=== PATIENT | female | born 1950 | race Caucasian/White ===

== ENCOUNTER 2020-11-23 20:52 | Inpatient (IN) ==
[2020-11-24] MEDS ORDERED: Naloxone 0.4 MG/ML INJ IVP PRN (00:02)
[2020-11-24] MEDS ORDERED: Ondansetron 4 MG/2 ML VIAL IVP PRN (00:02)
[2020-11-24] MEDS ORDERED: 0.9 % Sodium Chloride 1,000 ML IVC SCH (00:15)
[2020-11-24] MEDS: Pantoprazole 40 MG in 0.9 % Sodium Chloride Mini Bag 100 ML IVC SCH ×4 (00:53→15:35)
[2020-11-24 02:20] LABS: Basophils % 0.3 %; Eosinophils % 0.3 %; Hematocrit 16.7 % (35.3-44.9); Mean Platelet Volume 9.3 fL (9.4-12.4)
[2020-11-24 02:22] LABS: Immature Granulocytes % 0.7 % (0-4); Mean Corpuscular HGB Conc 32.3 g/dL (31.6-35.5); Mean Corpuscular Hemoglobin 30.2 pg (28.0-33.3); Mean Corpuscular Volume 93.3 fL (83.0-100.0); Monocytes # 0.6 K/mcL (0.0-1.3); Platelet Count 215 K/mcL (140-400); Red Blood Count 1.79 M/mcL (3.82-4.97); Red Cell Distribution Width 13.6 % (11.5-14.5); Segmented Neutrophils % 74.7 %; White Blood Count 9.7 K/mcL (4.3-11.1)
[2020-11-24 02:24] LABS: Lymphocytes # 1.8 K/mcL (0.6-4.6)
[2020-11-24 02:25] LABS: Hemoglobin 5.4 g/dL (11.5-15.4); Neutrophils # 7.3 K/mcL (1.6-8.9)
[2020-11-24 02:30] LABS: INR 1.2; Prothrombin Time 13.5 Seconds (9.4-12.1)
[2020-11-24 02:32] LABS: BUN/Creatinine Ratio 38 (6-26); Blood Urea Nitrogen 35 mg/dL (8-23); Calcium 7.2 mg/dL (8.6-10.3); Carbon Dioxide 24 mEq/L (23-29); Chloride 101 mEq/L (98-107); Glucose 112 mg/dL (70-105); Osmolality,Calculated 279 (280-300); Potassium 3.8 mEq/L (3.5-5.1); Sodium 130 mEq/L (136-145); eGFR For African Americans > 60 (> 60); eGFR For Non-African Americans > 60 (> 60)
[2020-11-24 02:33] LABS: Activated Partial Thrombo Time 23.5 Seconds (26.0-36.0)
[2020-11-24 03:00] LABS: Platelet Estimate Normal (Normal)
[2020-11-24] MEDS ORDERED: 0.9 % Sodium Chloride 250 ML ONE ×2 (03:06→08:47)
[2020-11-24] MEDS ORDERED: Pantoprazole 40 MG VIAL ONE (05:48)
[2020-11-24 07:43] LABS: Basophils % 0.3 %; Eosinophils % 0.2 %; Hematocrit 18.3 % (35.3-44.9); Immature Granulocytes % 0.8 % (0-4); Lymphocytes # 1.7 K/mcL (0.6-4.6); Lymphocytes % 18.6 %; Mean Corpuscular HGB Conc 32.8 g/dL (31.6-35.5); Mean Corpuscular Volume 91.5 fL (83.0-100.0); Mean Platelet Volume 9.5 fL (9.4-12.4); Monocytes # 0.6 K/mcL (0.0-1.3); Monocytes % 6.7 %; Neutrophils # 6.7 K/mcL (1.6-8.9); Platelet Count 195 K/mcL (140-400); Red Cell Distribution Width 14.6 % (11.5-14.5); Segmented Neutrophils % 73.4 %; White Blood Count 9.1 K/mcL (4.3-11.1)
[2020-11-24] MEDS ORDERED: Ipratropium/Albuterol Neb 3 ML IH PRN (09:06)
[2020-11-24] MEDS ORDERED: Loratadine 10 MG TABLET PO PRN (09:16)
[2020-11-24] MEDS ORDERED: Lidocaine -MPF 2% 2 ML VIAL ONE (12:26)
[2020-11-24] MEDS ORDERED: Dexamethasone 4 MG/ML VIAL ONE (12:26)
[2020-11-24] MEDS ORDERED: *HR* Succinylcholine 200 MG/10 ML VIAL IVP ONE (12:26)
[2020-11-24] MEDS ORDERED: Ondansetron 4 MG/2 ML VIAL ONE (12:26)
[2020-11-24] MEDS ORDERED: *HR* Rocuronium Bromide 50 MG/5 ML VIAL ONE (13:37)
[2020-11-24] MEDS ORDERED: *HR* Midazolam HCl 2 MG/2 ML VIAL ONE (13:39)
[2020-11-24] MEDS ORDERED: *HR* Propofol 200 MG/20 ML VIAL IVP PRN (13:57)
[2020-11-24] MEDS: Octreotide 400 MCG in 0.9 % Sodium Chloride 100 ML IVC SCH ×2 (15:17→22:25)
[2020-11-24 15:32] LABS: VBG Ionized Calcium 0.91 mmol/L (1.15-1.35)
[2020-11-24 15:34] LABS: Hematocrit 24.6 % (35.3-44.9)
[2020-11-24] MEDS: Piperacillin/Tazobactam 3.375 GM in 0.9 % Sodium Chloride Mini Bag 100 ML IVPB SCH (15:34)
[2020-11-24 15:35] LABS: Hemoglobin 7.9 g/dL (11.5-15.4)
[2020-11-24] MEDS: FentaNYL (PF) 1,000 MCG/100 ML IV.SOLN IVC SCH (15:35)
[2020-11-24 15:37] LABS: INR 1.1; Prothrombin Time 13.1 Seconds (9.4-12.1)
[2020-11-24 15:39] LABS: Activated Partial Thrombo Time 24.1 Seconds (26.0-36.0)
[2020-11-24 15:58] LABS: Alanine Aminotransferase 8 Units/L (7-52); Albumin 3.4 g/dL (3.5-5.7); Albumin/Globulin Ratio 1.8 (1.1-2.2); Alkaline Phosphatase 37 Units/L (34-104); Aspartate Amino Transferase 11 Units/L (13-39); BUN/Creatinine Ratio 45 (6-26); Bilirubin,Direct 0.1 mg/dL (0.0-0.2); Bilirubin,Indirect 0.3 mg/dL (0.0-1.0); Bilirubin,Total 0.4 mg/dL (0.3-1.0); Blood Urea Nitrogen 39 mg/dL (8-23); Calcium 6.9 mg/dL (8.6-10.3); Carbon Dioxide 23 mEq/L (23-29); Chloride 105 mEq/L (98-107); Globulin 1.9 g/dL (2.4-3.5); Glucose 154 mg/dL (70-105); Osmolality,Calculated 288 (280-300); Phosphorous 2.2 mg/dL (2.7-4.5); Potassium 3.8 mEq/L (3.5-5.1); Sodium 133 mEq/L (136-145); Total Protein 5.3 g/dL (6.4-8.9); eGFR For African Americans > 60 (> 60); eGFR For Non-African Americans > 60 (> 60)
[2020-11-24] MEDS ORDERED: Potassium Phosphate 44 MEQ in 0.9 % Sodium Chloride 250 ML IVPB ONE (16:00)
[2020-11-24] MEDS: Calcium Gluconate 1gm/50mL 1 GM/50 ML BAG IVPB SCH ×3 (17:28→19:57)
[2020-11-24] MEDS ORDERED: Artificial Tears SOLN 15 ML BOTTLE BOTH EYES PRN (17:54)
[2020-11-24 18:16] LABS: ABG Base Excess -2 mEq/L (-2 to 3); ABG HCO3 24 mEq/L (21-27); ABG Oxygen Saturation 96 % (95-98); ABG PCO2 45 mmHg (35-45); ABG PH 7.32 pH Units (7.32-7.45); ABG PO2 87 mmHg (85-104); ABG TCO2 25 mEq/L (20-26); Blood Gas Modality ASSIST CONTROL; Blood Gas VT 450 cc
[2020-11-24] MEDS: Pantoprazole 40 MG VIAL IVP SCH (19:43)
[2020-11-24] MEDS: Artificial Tears SOLN 15 ML BOTTLE BOTH EYES SCH (20:04)
[2020-11-24] MEDS: Chlorhexidine Rinse 15 ML MOUTHWASH MM SCH (20:04)
[2020-11-24] MEDS: Gabapentin 400 MG CAPSULE PO SCH (20:04)
[2020-11-25] MEDS: Piperacillin/Tazobactam 3.375 GM in 0.9 % Sodium Chloride Mini Bag 100 ML IVPB SCH ×4 (00:16→23:36)
[2020-11-25] MEDS: Artificial Tears SOLN 15 ML BOTTLE BOTH EYES SCH ×7 (00:16→23:36)
[2020-11-25] MEDS ORDERED: D5% in Water 1,000 ML IVC PRN (00:53)
[2020-11-25] MEDS ORDERED: Dextrose Gel 15 GM/37.5 ML TUBE PO PRN ×2 (00:53)
[2020-11-25] MEDS ORDERED: *HR* Dextrose 50 % in Water (Vial) 50 ML VIAL IVP PRN (00:53)
[2020-11-25] MEDS: FentaNYL (PF) 1,000 MCG/100 ML IV.SOLN IVC SCH ×3 (03:12→20:42)
[2020-11-25 04:11] LABS: ABG Base Excess -2 mEq/L (-2 to 3); ABG HCO3 25 mEq/L (21-27); ABG Oxygen Saturation 91 % (95-98); ABG PCO2 52 mmHg (35-45); ABG PH 7.29 pH Units (7.32-7.45); ABG PO2 70 mmHg (85-104); ABG TCO2 26 mEq/L (20-26); Blood Gas Modality ASSIST CONTROL; Blood Gas VT 450 cc
[2020-11-25] MEDS: Insulin LISPRO 300 UNITS/3 ML VIAL SUBQ SCH ×4 (06:33→23:38)
[2020-11-25] MEDS: Pantoprazole 40 MG VIAL IVP SCH (06:34)
[2020-11-25] MEDS: Octreotide 400 MCG in 0.9 % Sodium Chloride 100 ML IVC SCH (06:34)
[2020-11-25 06:44] LABS: Basophils % 0.1 %; Hematocrit 24.8 % (35.3-44.9); Hemoglobin 8.1 g/dL (11.5-15.4); Immature Granulocytes % 0.6 % (0-4); Mean Corpuscular HGB Conc 32.7 g/dL (31.6-35.5); Mean Corpuscular Hemoglobin 29.8 pg (28.0-33.3); Mean Corpuscular Volume 91.2 fL (83.0-100.0); Mean Platelet Volume 9.9 fL (9.4-12.4); Monocytes # 0.6 K/mcL (0.0-1.3); Platelet Count 178 K/mcL (140-400); Red Blood Count 2.72 M/mcL (3.82-4.97); Red Cell Distribution Width 15.6 % (11.5-14.5); Segmented Neutrophils % 90.3 %
[2020-11-25 06:45] LABS: Lymphocytes # 0.8 K/mcL (0.6-4.6); Neutrophils # 13.5 K/mcL (1.6-8.9); White Blood Count 14.9 K/mcL (4.3-11.1)
[2020-11-25 06:47] LABS: VBG Ionized Calcium 0.98 mmol/L (1.15-1.35)
[2020-11-25 06:51] LABS: INR 1.1; Prothrombin Time 12.2 Seconds (9.4-12.1)
[2020-11-25 06:53] LABS: Activated Partial Thrombo Time 23.5 Seconds (26.0-36.0)
[2020-11-25 07:04] LABS: Alanine Aminotransferase 10 Units/L (7-52); Albumin 3.2 g/dL (3.5-5.7); Albumin/Globulin Ratio 1.7 (1.1-2.2); Alkaline Phosphatase 36 Units/L (34-104); Aspartate Amino Transferase 11 Units/L (13-39); BUN/Creatinine Ratio 36 (6-26); Bilirubin,Direct 0.1 mg/dL (0.0-0.2); Bilirubin,Indirect 0.3 mg/dL (0.0-1.0); Bilirubin,Total 0.4 mg/dL (0.3-1.0); Blood Urea Nitrogen 33 mg/dL (8-23); Calcium 7.3 mg/dL (8.6-10.3); Carbon Dioxide 24 mEq/L (23-29); Chloride 107 mEq/L (98-107); Globulin 1.9 g/dL (2.4-3.5); Glucose 155 mg/dL (70-105); Magnesium 2.1 mg/dL (1.6-2.6); Osmolality,Calculated 296 (280-300); Phosphorous 5.6 mg/dL (2.7-4.5); Sodium 138 mEq/L (136-145); Total Protein 5.1 g/dL (6.4-8.9); eGFR For African Americans > 60 (> 60); eGFR For Non-African Americans > 60 (> 60)
[2020-11-25] MEDS: Gabapentin 400 MG CAPSULE PO SCH ×2 (07:21→21:35)
[2020-11-25] MEDS: Chlorhexidine Rinse 15 ML MOUTHWASH MM SCH ×2 (07:21→21:35)
[2020-11-25] MEDS: methocarbamoL 500 MG TABLET PO SCH (07:21)
[2020-11-25] MEDS: Midazolam HCl 50 MG/100 ML IV.SOLN IVC SCH ×2 (09:06→19:22)
[2020-11-25 12:25] LABS: Hematocrit 22.5 % (35.3-44.9); Hemoglobin 7.5 g/dL (11.5-15.4)
[2020-11-25 12:28] LABS: VBG Ionized Calcium 0.94 mmol/L (1.15-1.35)
[2020-11-25 12:44] LABS: BUN/Creatinine Ratio 35 (6-26); Blood Urea Nitrogen 31 mg/dL (8-23); Carbon Dioxide 27 mEq/L (23-29); Chloride 108 mEq/L (98-107); Glucose 164 mg/dL (70-105); Magnesium 2.2 mg/dL (1.6-2.6); Osmolality,Calculated 298 (280-300); Potassium 3.7 mEq/L (3.5-5.1); Sodium 139 mEq/L (136-145); eGFR For African Americans > 60 (> 60); eGFR For Non-African Americans > 60 (> 60)
[2020-11-25] MEDS: Calcium Gluconate 1gm/50mL 1 GM/50 ML BAG IVPB SCH ×2 (13:33→14:31)
[2020-11-25 17:14] LABS: Hematocrit 25.5 % (35.3-44.9); Hemoglobin 8.5 g/dL (11.5-15.4)
[2020-11-25 17:30] LABS: VBG Ionized Calcium 1.11 mmol/L (1.15-1.35)
[2020-11-26] MEDS: Artificial Tears SOLN 15 ML BOTTLE BOTH EYES SCH ×6 (03:13→23:25)
[2020-11-26] MEDS: FentaNYL (PF) 1,000 MCG/100 ML IV.SOLN IVC SCH ×3 (03:56→18:00)
[2020-11-26 04:22] LABS: ABG Base Excess 2 mEq/L (-2 to 3); ABG HCO3 29 mEq/L (21-27); ABG Oxygen Saturation 86 % (95-98); ABG PCO2 52 mmHg (35-45); ABG PH 7.35 pH Units (7.32-7.45); ABG PO2 55 mmHg (85-104); ABG TCO2 30 mEq/L (20-26); Blood Gas Modality ASSIST CONTROL; Blood Gas VT 450 cc
[2020-11-26] MEDS: Midazolam HCl 50 MG/100 ML IV.SOLN IVC SCH (04:36)
[2020-11-26 05:22] LABS: VBG Ionized Calcium 1.07 mmol/L (1.15-1.35)
[2020-11-26 05:26] LABS: Basophils % 0.2 %; Eosinophils % 0.1 %; Hematocrit 26.2 % (35.3-44.9); Hemoglobin 8.3 g/dL (11.5-15.4); Immature Granulocytes % 0.6 % (0-4); Lymphocytes # 1.3 K/mcL (0.6-4.6); Lymphocytes % 14.8 %; Mean Corpuscular HGB Conc 31.7 g/dL (31.6-35.5); Mean Corpuscular Hemoglobin 29.9 pg (28.0-33.3); Mean Corpuscular Volume 94.2 fL (83.0-100.0); Mean Platelet Volume 9.6 fL (9.4-12.4); Monocytes # 0.6 K/mcL (0.0-1.3); Monocytes % 7.2 %; Neutrophils # 6.9 K/mcL (1.6-8.9); Platelet Count 158 K/mcL (140-400); Red Blood Count 2.78 M/mcL (3.82-4.97); Red Cell Distribution Width 15.8 % (11.5-14.5); Segmented Neutrophils % 77.1 %; White Blood Count 8.9 K/mcL (4.3-11.1)
[2020-11-26 05:31] LABS: Prothrombin Time 12.1 Seconds (9.4-12.1)
[2020-11-26 05:34] LABS: Activated Partial Thrombo Time 22.8 Seconds (26.0-36.0)
[2020-11-26 05:39] LABS: Alanine Aminotransferase 9 Units/L (7-52); Albumin 3.1 g/dL (3.5-5.7); Albumin/Globulin Ratio 1.6 (1.1-2.2); Alkaline Phosphatase 34 Units/L (34-104); Aspartate Amino Transferase 9 Units/L (13-39); BUN/Creatinine Ratio 26 (6-26); Bilirubin,Direct 0.1 mg/dL (0.0-0.2); Bilirubin,Indirect 0.4 mg/dL (0.0-1.0); Bilirubin,Total 0.5 mg/dL (0.3-1.0); Blood Urea Nitrogen 23 mg/dL (8-23); Calcium 7.4 mg/dL (8.6-10.3); Carbon Dioxide 28 mEq/L (23-29); Chloride 112 mEq/L (98-107); Glucose 121 mg/dL (70-105); Magnesium 2.3 mg/dL (1.6-2.6); Osmolality,Calculated 303 (280-300); Phosphorous 2.7 mg/dL (2.7-4.5); Potassium 3.4 mEq/L (3.5-5.1); Sodium 144 mEq/L (136-145); Total Protein 5.1 g/dL (6.4-8.9); eGFR For African Americans > 60 (> 60); eGFR For Non-African Americans > 60 (> 60)
[2020-11-26] MEDS: Insulin LISPRO 300 UNITS/3 ML VIAL SUBQ SCH ×4 (06:16→23:24)
[2020-11-26] MEDS ORDERED: Potassium Phosphate 44 MEQ in 0.9 % Sodium Chloride 250 ML IVPB ONE (06:20)
[2020-11-26] MEDS: Calcium Gluconate 1gm/50mL 1 GM/50 ML BAG IVPB PRN ×2 (06:29→07:30)
[2020-11-26] MEDS: Chlorhexidine Rinse 15 ML MOUTHWASH MM SCH ×2 (08:03→19:46)
[2020-11-26] MEDS: Pantoprazole 40 MG VIAL IVP SCH (08:03)
[2020-11-26] MEDS: Piperacillin/Tazobactam 3.375 GM in 0.9 % Sodium Chloride Mini Bag 100 ML IVPB SCH ×3 (08:03→23:25)
[2020-11-26] MEDS: methocarbamoL 500 MG TABLET PO SCH (08:04)
[2020-11-26] MEDS: Gabapentin 400 MG CAPSULE PO SCH ×2 (08:04→19:20)
[2020-11-26] MEDS: Dexmedetomidine HCl 400 MCG/100 ML MLS IVC SCH (10:55)
[2020-11-26 21:28] LABS: VBG Ionized Calcium 1.05 mmol/L (1.15-1.35)
[2020-11-26 21:46] LABS: Phosphorous 3.4 mg/dL (2.7-4.5); Potassium 3.9 mEq/L (3.5-5.1)
[2020-11-26] MEDS ORDERED: Calcium Gluconate 1gm/50mL 1 GM/50 ML BAG IVPB PRN (23:30)
[2020-11-27] MEDS: Artificial Tears SOLN 15 ML BOTTLE BOTH EYES SCH ×2 (03:19→07:59)
[2020-11-27 04:19] LABS: ABG Base Excess 3 mEq/L (-2 to 3); ABG HCO3 29 mEq/L (21-27); ABG Oxygen Saturation 94 % (95-98); ABG PCO2 48 mmHg (35-45); ABG PH 7.39 pH Units (7.32-7.45); ABG PO2 71 mmHg (85-104); ABG TCO2 30 mEq/L (20-26); Blood Gas Modality ASSIST CONTROL; Blood Gas VT 450 cc
[2020-11-27] MEDS: Insulin LISPRO 300 UNITS/3 ML VIAL SUBQ SCH ×4 (05:17→23:45)
[2020-11-27 06:24] LABS: Basophils % 0.3 %; Eosinophils # 0.1 K/mcL (0.0-0.6); Eosinophils % 0.6 %; Hematocrit 27.4 % (35.3-44.9); Hemoglobin 8.4 g/dL (11.5-15.4); Immature Granulocytes % 0.5 % (0-4); Lymphocytes % 11.2 %; Mean Corpuscular HGB Conc 30.7 g/dL (31.6-35.5); Mean Corpuscular Volume 97.9 fL (83.0-100.0); Mean Platelet Volume 9.8 fL (9.4-12.4); Monocytes # 0.6 K/mcL (0.0-1.3); Monocytes % 7.2 %; Neutrophils # 6.9 K/mcL (1.6-8.9); Platelet Count 161 K/mcL (140-400); Red Cell Distribution Width 16.3 % (11.5-14.5); Segmented Neutrophils % 80.2 %; White Blood Count 8.6 K/mcL (4.3-11.1)
[2020-11-27 06:47] LABS: Alanine Aminotransferase 7 Units/L (7-52); Albumin 3.1 g/dL (3.5-5.7); Albumin/Globulin Ratio 1.5 (1.1-2.2); Alkaline Phosphatase 36 Units/L (34-104); Aspartate Amino Transferase 10 Units/L (13-39); BUN/Creatinine Ratio 19 (6-26); Bilirubin,Total 0.4 mg/dL (0.3-1.0); Blood Urea Nitrogen 14 mg/dL (8-23); Calcium 7.9 mg/dL (8.6-10.3); Carbon Dioxide 26 mEq/L (23-29); Chloride 114 mEq/L (98-107); Globulin 2.1 g/dL (2.4-3.5); Glucose 100 mg/dL (70-105); Magnesium 2.3 mg/dL (1.6-2.6); Osmolality,Calculated 305 (280-300); Phosphorous 3.4 mg/dL (2.7-4.5); Potassium 3.9 mEq/L (3.5-5.1); Sodium 147 mEq/L (136-145); Total Protein 5.2 g/dL (6.4-8.9); eGFR For African Americans > 60 (> 60); eGFR For Non-African Americans > 60 (> 60)
[2020-11-27] MEDS: Pantoprazole 40 MG VIAL IVP SCH (07:57)
[2020-11-27] MEDS: Chlorhexidine Rinse 15 ML MOUTHWASH MM SCH ×2 (07:57→19:12)
[2020-11-27] MEDS: Piperacillin/Tazobactam 3.375 GM in 0.9 % Sodium Chloride Mini Bag 100 ML IVPB SCH ×3 (07:58→23:45)
[2020-11-27] MEDS: Gabapentin 400 MG CAPSULE PO SCH ×2 (07:59→21:46)
[2020-11-27] MEDS: methocarbamoL 500 MG TABLET PO SCH (08:00)
[2020-11-27] MEDS: Dexmedetomidine HCl 400 MCG/100 ML MLS IVC SCH (08:30)
[2020-11-27] MEDS ORDERED: Furosemide 20 MG/2 ML VIAL IVP ONE (09:15)
[2020-11-28] MEDS ORDERED: *HR* Metoprolol 5 MG/5 ML VIAL IVP ONE (05:03)
[2020-11-28] MEDS: Insulin LISPRO 300 UNITS/3 ML VIAL SUBQ SCH ×2 (06:47→11:54)
[2020-11-28] MEDS: Pantoprazole 40 MG VIAL IVP SCH (07:36)
[2020-11-28] MEDS: Piperacillin/Tazobactam 3.375 GM in 0.9 % Sodium Chloride Mini Bag 100 ML IVPB SCH ×3 (07:41→23:37)
[2020-11-28] MEDS: Chlorhexidine Rinse 15 ML MOUTHWASH MM SCH (07:42)
[2020-11-28] MEDS: Midazolam HCl 50 MG/100 ML IV.SOLN IVC SCH (07:42)
[2020-11-28] MEDS: Dexmedetomidine HCl 400 MCG/100 ML MLS IVC SCH (07:42)
[2020-11-28] MEDS ORDERED: Furosemide 20 MG/2 ML VIAL IVP ONE (08:30)
[2020-11-28 09:02] LABS: VBG Ionized Calcium 1.01 mmol/L (1.15-1.35)
[2020-11-28 09:06] LABS: Hematocrit 34.5 % (35.3-44.9); Mean Corpuscular HGB Conc 31.9 g/dL (31.6-35.5); Mean Corpuscular Hemoglobin 29.8 pg (28.0-33.3); Mean Corpuscular Volume 93.5 fL (83.0-100.0); Mean Platelet Volume 9.6 fL (9.4-12.4); Platelet Count 214 K/mcL (140-400); Red Blood Count 3.69 M/mcL (3.82-4.97); Red Cell Distribution Width 15.4 % (11.5-14.5)
[2020-11-28 09:23] LABS: BUN/Creatinine Ratio 21 (6-26); Blood Urea Nitrogen 13 mg/dL (8-23); Calcium 9.1 mg/dL (8.6-10.3); Carbon Dioxide 26 mEq/L (23-29); Chloride 106 mEq/L (98-107); Glucose 133 mg/dL (70-105); Magnesium 2.3 mg/dL (1.6-2.6); Osmolality,Calculated 304 (280-300); Phosphorous 2.5 mg/dL (2.7-4.5); Sodium 146 mEq/L (136-145); eGFR For African Americans > 60 (> 60); eGFR For Non-African Americans > 60 (> 60)
[2020-11-28] MEDS: methocarbamoL 500 MG TABLET PO SCH (11:07)
[2020-11-28] MEDS: Gabapentin 400 MG CAPSULE PO SCH ×2 (11:07→19:34)
[2020-11-28] MEDS ORDERED: Potassium Phosphate 44 MEQ in 0.9 % Sodium Chloride 250 ML IVPB ONE (11:33)
[2020-11-28] MEDS ORDERED: *HR* Metoprolol 5 MG/5 ML VIAL IVP SCH (12:00)
[2020-11-28] MEDS ORDERED: E-Z-PAQUE (BARIUM SULF) SUSP 1 BOTTLE PO ONE (12:23)
[2020-11-28] MEDS ORDERED: E-Z-HD (BARIUM SULF) SUSPENSION PO ONE (12:23)
[2020-11-28] MEDS ORDERED: Losartan/HCTZ 50-12.5 TABLET PO SCH (13:00)
[2020-11-28] MEDS ORDERED: Dextrose Gel 15 GM/37.5 ML TUBE PO PRN ×2 (13:23)
[2020-11-28] MEDS ORDERED: D5% in Water 1,000 ML IVC PRN (13:23)
[2020-11-28] MEDS ORDERED: Ipratropium/Albuterol Neb 3 ML IH PRN (13:23)
[2020-11-28] MEDS ORDERED: Loratadine 10 MG TABLET PO PRN (13:23)
[2020-11-28] MEDS ORDERED: *HR* Dextrose 50 % in Water (Vial) 50 ML VIAL IVP PRN (13:23)
[2020-11-28] MEDS ORDERED: Naloxone 0.4 MG/ML INJ IVP PRN (13:23)
[2020-11-28] MEDS: *HR* Metoprolol 5 MG/5 ML VIAL IVP SCH ×2 (16:51→23:38)
[2020-11-29 03:11] LABS: Basophils % 0.2 %; Hematocrit 35.2 % (35.3-44.9); Hemoglobin 11.4 g/dL (11.5-15.4); Immature Granulocytes % 0.5 % (0-4); Lymphocytes # 0.7 K/mcL (0.6-4.6); Mean Corpuscular HGB Conc 32.4 g/dL (31.6-35.5); Mean Corpuscular Hemoglobin 29.8 pg (28.0-33.3); Mean Corpuscular Volume 92.1 fL (83.0-100.0); Mean Platelet Volume 9.8 fL (9.4-12.4); Monocytes % 8.7 %; Neutrophils # 9.2 K/mcL (1.6-8.9); Platelet Count 242 K/mcL (140-400); Red Blood Count 3.82 M/mcL (3.82-4.97); Segmented Neutrophils % 84.6 %; White Blood Count 10.9 K/mcL (4.3-11.1)
[2020-11-29 03:27] LABS: BUN/Creatinine Ratio 29 (6-26); Blood Urea Nitrogen 20 mg/dL (8-23); Calcium 8.9 mg/dL (8.6-10.3); Carbon Dioxide 29 mEq/L (23-29); Chloride 106 mEq/L (98-107); Glucose 164 mg/dL (70-105); Osmolality,Calculated 314 (280-300); Phosphorous 3.2 mg/dL (2.7-4.5); Potassium 2.6 mEq/L (3.5-5.1); Sodium 149 mEq/L (136-145); eGFR For African Americans > 60 (> 60); eGFR For Non-African Americans > 60 (> 60)
[2020-11-29] MEDS: *HR* Metoprolol 5 MG/5 ML VIAL IVP SCH ×3 (05:50→13:33)
[2020-11-29] MEDS ORDERED: Saline Nasal Spray 44 ML BOTTLE NS PRN (07:33)
[2020-11-29] MEDS: Multivit/Ca/Min/Fe/FA 1 TAB TABLET PO SCH (08:22)
[2020-11-29] MEDS: Gabapentin 400 MG CAPSULE PO SCH ×2 (08:22→20:23)
[2020-11-29] MEDS: Losartan/HCTZ 50-12.5 TABLET PO SCH (08:23)
[2020-11-29] MEDS: Piperacillin/Tazobactam 3.375 GM in 0.9 % Sodium Chloride Mini Bag 100 ML IVPB SCH ×2 (08:24→16:05)
[2020-11-29] MEDS: Chlorhexidine Rinse 15 ML MOUTHWASH MM SCH ×2 (08:24→20:23)
[2020-11-29] MEDS ORDERED: methocarbamoL 500 MG TABLET PO SCH (09:00)
[2020-11-29] MEDS ORDERED: Famotidine 20 MG TABLET PO SCH ×2 (09:00)
[2020-11-29] MEDS ORDERED: Chloraseptic Spray 177 ML BOTTLE MM PRN (16:47)
[2020-11-29] MEDS: Lactobacillus 1 EACH CAP.SPRINK PO SCH (20:23)
[2020-11-29] MEDS: Budesonide/Formoterol 160/4.5 1 PUFF INH IH SCH (21:12)
[2020-11-29] MEDS: Melatonin 3 MG TABLET PO PRN (22:07)
[2020-11-30] MEDS: Piperacillin/Tazobactam 3.375 GM in 0.9 % Sodium Chloride Mini Bag 100 ML IVPB SCH ×4 (00:03→23:48)
[2020-11-30 05:22] LABS: Basophils % 0.4 %; Eosinophils % 0.4 %; Hematocrit 31.7 % (35.3-44.9); Hemoglobin 10.5 g/dL (11.5-15.4); Immature Granulocytes % 0.6 % (0-4); Lymphocytes # 1.7 K/mcL (0.6-4.6); Lymphocytes % 18.5 %; Mean Corpuscular HGB Conc 33.1 g/dL (31.6-35.5); Mean Corpuscular Hemoglobin 30.2 pg (28.0-33.3); Mean Corpuscular Volume 91.1 fL (83.0-100.0); Mean Platelet Volume 10.1 fL (9.4-12.4); Monocytes # 0.9 K/mcL (0.0-1.3); Monocytes % 10.5 %; Neutrophils # 6.3 K/mcL (1.6-8.9); Platelet Count 206 K/mcL (140-400); Red Blood Count 3.48 M/mcL (3.82-4.97); Red Cell Distribution Width 14.8 % (11.5-14.5); Segmented Neutrophils % 69.6 %
[2020-11-30 05:34] LABS: INR 1.5; Prothrombin Time 16.7 Seconds (9.4-12.1)
[2020-11-30 05:58] LABS: Thyroid Stimulating Hormone 0.226 mcIU/mL (0.340-5.600)
[2020-11-30 06:08] LABS: % Iron Saturation 26 % (15-50); Alanine Aminotransferase 11 Units/L (7-52); Albumin 3.4 g/dL (3.5-5.7); Albumin/Globulin Ratio 1.3 (1.1-2.2); Alkaline Phosphatase 42 Units/L (34-104); Aspartate Amino Transferase 16 Units/L (13-39); BUN/Creatinine Ratio 29 (6-26); Bilirubin,Total 1.1 mg/dL (0.3-1.0); Blood Urea Nitrogen 22 mg/dL (8-23); Calcium 8.6 mg/dL (8.6-10.3); Carbon Dioxide 29 mEq/L (23-29); Chloride 100 mEq/L (98-107); Ferritin 158 ng/mL (10-120); Folate 13.8 ng/mL (3.0-16.0); Globulin 2.7 g/dL (2.4-3.5); Glucose 127 mg/dL (70-105); Iron 68 mcg/dL (50-170); Magnesium 2.2 mg/dL (1.6-2.6); Osmolality,Calculated 293 (280-300); Phosphorous 2.7 mg/dL (2.7-4.5); Potassium 2.7 mEq/L (3.5-5.1); Sodium 139 mEq/L (136-145); Total Protein 6.1 g/dL (6.4-8.9); Transferrin 189 mg/dL (203-362); eGFR For African Americans > 60 (> 60); eGFR For Non-African Americans > 60 (> 60)
[2020-11-30 08:33] LABS: Triiodothyronine (T3) Total 0.51 ng/mL (0.87-1.78)
[2020-11-30] MEDS: Multivit/Ca/Min/Fe/FA 1 TAB TABLET PO SCH (09:06)
[2020-11-30] MEDS: Loratadine 10 MG TABLET PO SCH (09:06)
[2020-11-30] MEDS: Losartan/HCTZ 50-12.5 TABLET PO SCH (09:06)
[2020-11-30] MEDS: Chlorhexidine Rinse 15 ML MOUTHWASH MM SCH ×2 (09:06→20:03)
[2020-11-30] MEDS: Lactobacillus 1 EACH CAP.SPRINK PO SCH ×2 (09:06→20:02)
[2020-11-30] MEDS: amLODIPine 5 MG TABLET PO SCH (09:06)
[2020-11-30] MEDS: Gabapentin 400 MG CAPSULE PO SCH ×2 (09:06→20:02)
[2020-11-30] MEDS: Nicotine 21 MG PATCH.TD24 TD SCH (09:07)
[2020-11-30] MEDS: Budesonide/Formoterol 160/4.5 1 PUFF INH IH SCH ×2 (10:08→23:09)
[2020-11-30] MEDS: Melatonin 3 MG TABLET PO PRN (20:03)
[2020-12-01 08:01] VITALS: BP 160/88
[2020-12-01 08:54] LABS: Basophils % 0.5 %; Eosinophils # 0.2 K/mcL (0.0-0.6); Eosinophils % 1.9 %; Hematocrit 32.8 % (35.3-44.9); Hemoglobin 10.6 g/dL (11.5-15.4); Immature Granulocytes % 0.6 % (0-4); Lymphocytes # 1.8 K/mcL (0.6-4.6); Lymphocytes % 23.4 %; Mean Corpuscular HGB Conc 32.3 g/dL (31.6-35.5); Mean Corpuscular Hemoglobin 29.6 pg (28.0-33.3); Mean Corpuscular Volume 91.6 fL (83.0-100.0); Monocytes # 0.8 K/mcL (0.0-1.3); Monocytes % 10.1 %; Neutrophils # 4.9 K/mcL (1.6-8.9); Platelet Count 181 K/mcL (140-400); Red Blood Count 3.58 M/mcL (3.82-4.97); Red Cell Distribution Width 14.6 % (11.5-14.5); Segmented Neutrophils % 63.5 %; White Blood Count 7.7 K/mcL (4.3-11.1)
[2020-12-01] MEDS: Chlorhexidine Rinse 15 ML MOUTHWASH MM SCH (08:56)
[2020-12-01] MEDS: Losartan/HCTZ 50-12.5 TABLET PO SCH (08:56)
[2020-12-01] MEDS: Lactobacillus 1 EACH CAP.SPRINK PO SCH (08:56)
[2020-12-01] MEDS: Piperacillin/Tazobactam 3.375 GM in 0.9 % Sodium Chloride Mini Bag 100 ML IVPB SCH (08:56)
[2020-12-01] MEDS: Multivit/Ca/Min/Fe/FA 1 TAB TABLET PO SCH (08:56)
[2020-12-01] MEDS: Nicotine 21 MG PATCH.TD24 TD SCH (08:56)
[2020-12-01] MEDS: Loratadine 10 MG TABLET PO SCH (08:56)
[2020-12-01] MEDS: Gabapentin 400 MG CAPSULE PO SCH (08:57)
[2020-12-01] MEDS: amLODIPine 5 MG TABLET PO SCH (08:57)
[2020-12-01 09:14] LABS: Alanine Aminotransferase 11 Units/L (7-52); Albumin 3.4 g/dL (3.5-5.7); Albumin/Globulin Ratio 1.3 (1.1-2.2); Alkaline Phosphatase 39 Units/L (34-104); Aspartate Amino Transferase 15 Units/L (13-39); BUN/Creatinine Ratio 22 (6-26); Bilirubin,Total 0.7 mg/dL (0.3-1.0); Blood Urea Nitrogen 14 mg/dL (8-23); Calcium 8.7 mg/dL (8.6-10.3); Carbon Dioxide 24 mEq/L (23-29); Chloride 102 mEq/L (98-107); Globulin 2.6 g/dL (2.4-3.5); Glucose 109 mg/dL (70-105); Magnesium 2.1 mg/dL (1.6-2.6); Osmolality,Calculated 283 (280-300); Phosphorous 3.1 mg/dL (2.7-4.5); Potassium 3.2 mEq/L (3.5-5.1); Sodium 136 mEq/L (136-145); eGFR For African Americans > 60 (> 60); eGFR For Non-African Americans > 60 (> 60)
[2020-12-01] MEDS: Budesonide/Formoterol 160/4.5 1 PUFF INH IH SCH (09:37)
== END 2020-12-01 13:03 | disposition home health service (06) | DRG 377 ==
LOC: 2NENU → SUATTDRO 23:18 → ICNU 11-24 14:42 → SUATTDRO 11-24 14:45 → 3ANU 11-28 23:29
PROVIDERS: ADMIT Internal Medicine; ATTEND Internal Medicine